=== PATIENT | male | born 1945 | race Asian ===

== ENCOUNTER 2017-08-07 08:25 | Day surgery (SDC) | payer OTHER, MEDICARE ==
[~2017-08-07 08:25] MED LIST: ATROPINE 1 MG/10 ML SYRINGE IV; DIPHENHYDRAMINE 50 MG INJ IV; EPHEDrine SULFATE 50 MG/5 ML SYG IV; FENTAnyl 50 MCG/ML VIAL IV; HYDROmorphONE (0.2 MG/ML) 10ML SYG IV; LABETALOL HCL 20MG INJ IV; MEPERIDINE 25 MG INJ IV; MIDAZOLAM 1 MG/ML 2 ML INJ IV; ONDANSETRON 4 MG INJ IV; OXYCODONE/ACETAMINOPHEN (5/325) TAB PO; hydrALAzine 20 MG INJ IV; morphine (1 MG/ML) 10ML SYRINGE IV
[2017-08-07 09:23] LABS: ADD MAN DIFF? NO
[2017-08-07 09:24] LABS: WHITE BLOOD COUNT 7.8 10^3/ul (4.8-10.8)
[2017-08-07 09:24] LABS: BASOPHIL # 0.1 10^3/ul (0.0-0.1); BASOPHILS % 0.9 % (0.0-2.0); EOSINOPHILS # 0.1 10^3/ul (0.0-0.5); EOSINOPHILS % 1.5 % (0.0-7.0); HEMATOCRIT 39.3 % (42.0-52.0); HEMOGLOBIN 13.5 g/dl (14.0-18.0); LYMPHOCYTES # 2.4 10^3/ul (0.8-2.9); LYMPHOCYTES % 30.7 % (15.0-51.0); MEAN CORPUSCULAR HEMOGLOBIN 31.2 pg (29.0-33.0); MEAN CORPUSCULAR HGB CONC 34.4 g/dl (32.0-37.0); MEAN CORPUSCULAR VOLUME 90.8 fl (82.0-101.0); MEAN PLATELET VOLUME 8.7 fl (7.4-10.4); MONOCYTE # 0.5 10^3/ul (0.3-0.9); MONOCYTES % 6.4 % (0.0-11.0); NEUTROPHIL # 4.7 10^3/ul (1.6-7.5); NEUTROPHILS % 60.2 % (39.0-77.0); PLATELET COUNT 213 10^3/UL (140-415); RED BLOOD COUNT 4.33 10^6/ul (4.70-6.10); RED CELL DISTRIBUTION WIDTH 11.9 % (11.5-14.5)
[2017-08-07 09:43] LABS: ALANINE AMINOTRANSFERASE 35 IU/L (13-69); ALBUMIN 4.4 g/dl (3.3-4.9); ALBUMIN/GLOBULIN RATIO 1.25; ALKALINE PHOSPHATASE 76 IU/L (42-121); ANION GAP 13 (8-16); ASPARTATE AMINO TRANSFERASE 25 IU/L (15-46); BILIRUBIN,INDIRECT 0.4 mg/dl (0-1.1); BILIRUBIN,TOTAL 0.4 mg/dl (0.2-1.3); CARBON DIOXIDE 29 mmol/L (21-31); CHLORIDE 103 mmol/L (97-110); GLUCOSE 100 mg/dl (70-220); TOTAL PROTEIN 7.9 g/dl (6.1-8.1)
[2017-08-07 09:44] LABS: BLOOD UREA NITROGEN 15 mg/dl (7-20); CALCIUM 9.1 mg/dl (8.4-10.2); CREATININE 0.73 mg/dl (0.61-1.24); POTASSIUM 4.6 mmol/L (3.5-5.1); SODIUM 140 mmol/L (135-144)
[2017-08-07] MEDS ORDERED: CIPROFLOXACIN 400 MG in D5W 200 ML IVPB (10:00)
[2017-08-07] MEDS ORDERED: FENTAnyl 50 MCG/ML VIAL (10:45)
[2017-08-07] MEDS ORDERED: PROPOFOL 20 ML (10:45)
[2017-08-07] MEDS ORDERED: MIDAZOLAM 1 MG/ML 2 ML INJ (10:45)
[2017-08-07] MEDS ORDERED: LIDOCAINE 2% (SDV) 5 ML INJ (10:45)
[2017-08-07] MEDS ORDERED: ROCURONIUM 50 MG INJ (10:45)
[2017-08-07] MEDS ORDERED: NEOSTIGMINE 3 MG/3 ML SYRINGE (10:45)
[2017-08-07] MEDS ORDERED: GLYCOPYRROLATE 0.4 MG INJ (10:45)
[2017-08-07] MEDS ORDERED: ONDANSETRON 4 MG INJ (10:46)
[2017-08-07] MEDS ORDERED: DEXAMETHASONE 4 MG/ML 1 ML INJ (10:46)
== END 2017-08-07 12:27 | disposition home or self-care (01) ==
LOC: GIL 08:25 → SDS 08:25 → GIL 12:27
DX: K80.50 Calculus of bile duct without cholangitis or cholecystitis without obstruction (principal); Z53.9 Procedure and treatment not carried out, unspecified reason
CPT/HCPCS: 74018; 80053; 85025; 93005